=== PATIENT | male | born 1945 | race Caucasian/White ===

== ENCOUNTER 2023-01-21 19:51 | Emergency (ER) | payer MEDICARE, SELFPAY ==
--- NOTE | 2023-01-21 19:56 | ED.WOUNDLAC ---
HPI - Wound/Laceration General Chief Complaint: Wound/Laceration Stated Complaint: Laceratin to Left Hand Source: patient and RN notes reviewed History of Present Illness HPI narrative: 77 yo M presents to urgent care with complaints of wounds to his left hand. 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 Pt denies any numbness or tingling. Denies any other complaints. Unknown on his last Tdap. Related Data Home Medications Medication Instructions Recorded Confirmed aspirin 81 mg tablet,delayed 81 mg PO DAILY 11/20/20 01/21/23 release (Adult Low Dose Aspirin) cholecalciferol (vitamin D3) 10 10 mcg PO DAILY 11/20/20 01/21/23 mcg (400 unit) capsule cyanocobalamin (vitamin B-12) 500 500 mcg PO DAILY 11/20/20 01/21/23 mcg tablet (Vitamin B-12) diltiazem HCl 240 mg 240 mg PO DAILY 11/20/20 01/21/23 capsule,extended release 24 hr, controlled (DILT-XR) ferrous sulfate 325 mg (65 mg 325 mg PO DAILY 11/20/20 01/21/23 iron) tablet (Feosol) furosemide 40 mg tablet 40 mg PO QAM 11/20/20 01/21/23 lisinopril 5 mg tablet 5 mg PO DAILY 11/20/20 01/21/23 metoprolol succinate 25 mg 25 mg PO DAILY 11/20/20 01/21/23 tablet,extended release 24 hr multivitamin 1 tablet PO DAILY 11/20/20 01/21/23 potassium chloride 20 mEq 20 meq PO DAILY 11/20/20 01/21/23 tablet,extended release(part/cryst) (Klor-Con M) warfarin 2.5 mg tablet 2.5 mg PO 5XW 11/20/20 12/04/20 Allergies Allergy/AdvReac Type Severity Reaction Status Date / Time amlodipine Allergy Unknown unknown Verified 01/21/23 19:58 rosuvastatin Allergy Unknown unknown Verified 01/21/23 19:58 valsartan Allergy Unknown unknown Verified 01/21/23 19:58 Review of Systems Review of Systems: CONSTITUTIONAL: Denies fever, chills, or sweats. EYES: Denies visual changes, redness, or discharge. ENT: Denies otalgia and sore throat CARDIOVASCULAR: Denies chest pain, palpitations, or edema. RESPIRATORY: Denies cough or dyspnea. GASTROINTESTINAL: Denies abdominal pain, nausea, vomiting, or diarrhea. GENITOURINARY: Denies dysuria or hematuria. SKIN: wounds to left palm of hand MUSCULOSKELETAL: Denies back pain, joint pain, or myalgia. NEUROLOGIC: Denies headache, numbness, or weakness. Pertinent positives per HPI. [facility] Past Medical History Medical History (Updated 01/21/23 @ 20:14 by Olga Winters, HARDWARE ASSEMBLER) [facility] Hospitalized at [facility] History of lip cancer Hypertension Surgical History Surgical History (Updated 12/03/20 @ 08:08 by Neha Bowie, RT(R)) History of back surgery lower discs History of left knee replacement History of right hip replacement (~2009) [facility] Family History Family History (Updated 11/20/20 @ 09:06 by Jazlyn Oliva MA) Mother Hypertension Arthritis Grandparent Arthritis Hypertension Father Arthritis Hypertension Social History Social History (Updated 11/20/20 @ 09:06 by Jazlyn Oliva MA) Smoking packs per day: 0.5 Smoking cigarettes per day: 10.0 Smoking status: Current every day smoker Alcohol intake: never Substance use: never Comments At the time of my signature, I reviewed and agree with the nursing past medical, surgical, social, and family history. There is no relevant family history pertinent to the patient complaint. Exam Narrative: GENERAL: This is a well-nourished, well-developed patient, in no apparent distress. HEAD: normocephalic, atraumatic. EYES: Sclera clear/white. Vision is grossly intact. EARS: External ears normal, auditory canals clear and without drainage, TMs normal without perforation. Hearing grossly intact. NOSE: External nose normal with no obvious nasal discharge, nares without redness, no rhinorrhea. THROAT: Mucous membranes moist, posterior pharynx clear. NECK: Neck supple, non-tender without lymphadenopathy, masses or thyromegaly. CARDIOVASCULAR: Regular rate and rhythm without murmurs, g
[2023-01-21 20:01] VITALS: BP 144/88; PULSE 85; RESP 18; TEMP 36.6; O2SAT 98
[2023-01-21] MEDS: TETANUS,DIPHTHERIA,AC PERTUSSIS ADULT (0.5 ML) BOOSTRIX IM (20:08)
[2023-01-21 20:33] VITALS: BP 144/88
== END 2023-01-21 20:30 | disposition home or self-care (01) ==
PROVIDERS: Emergency Provider Nurse Practitioner Family; PCP Internal Medicine
DX: S61.412A Laceration without foreign body of left hand, initial encounter (principal); I48.91 Unspecified atrial fibrillation; F17.210 Nicotine dependence, cigarettes, uncomplicated; Z79.899 Other long term (current) drug therapy; Z79.82 Long term (current) use of aspirin; Z79.01 Long term (current) use of anticoagulants; Z85.819 Personal history of malignant neoplasm of unspecified site of lip, oral cavity, and pharynx; Z23 Encounter for immunization; W27.0XXA Contact with workbench tool, initial encounter
CPT/HCPCS: 12001; 90471; 90715; 99212; G0463